=== PATIENT | female | born 2000 | race Two or more races ===

== ENCOUNTER 2018-12-28 21:13 | Emergency (ER) | payer BC, OTHER ==
[~2018-12-28] VITALS: Ht 172.7 cm; Wt 59.0 kg
[2018-12-28 21:29] LABS: BASOPHILS % (AUTO) 0.7 % (0.0-2.0); EOSINOPHILS % (AUTO) 1.1 % (0.0-6.0); HEMATOCRIT 42 % (33-45); HEMOGLOBIN 13.9 g/dL (11.5-14.8); LYMPHOCYTES # (AUTO) 1.9 /CMM (0.8-4.8); LYMPHOCYTES % (AUTO) 32.7 % (20.0-44.0); MEAN CORPUSCULAR HGB CONC 34 g/dl (31.0-36.0); MEAN CORPUSCULAR VOLUME 92 fL (82-100); MONOCYTES # (AUTO) 0.4 /CMM (0.1-1.30); MONOCYTES % (AUTO) 7.6 % (2.0-12.0); NEUTROPHILS # (AUTO) 3.3 /CMM (1.8-8.9); NEUTROPHILS % (AUTO) 57.9 % (43.0-81.0); PLATELET COUNT (AUTO) 231 /CMM (150-450); RED BLOOD CELL COUNT(AUTO) 4.53 MIL/uL (4.0-5.2); WHITE BLOOD COUNT (AUTO) 5.7 K/uL (4.3-11.0)
[2018-12-28] MEDS ORDERED: MORPHINE SULFATE INJ 4 MG/ML DISP.SYRIN ONE (21:29)
[2018-12-28] MEDS ORDERED: ONDANSETRON HCL/PF 4 MG/2 ML VIAL ONE (21:29)
[2018-12-28] MEDS ORDERED: IV NS 0.9% 1,000 ML BAG IV ONE (21:30)
[2018-12-28] MEDS ORDERED: ONDANSETRON HCL/PF - ER 4 MG/2 ML VIAL IV ONE (21:30)
[2018-12-28] MEDS ORDERED: MORPHINE SULFATE INJ 2 MG/ML DISP.SYRIN IV ONE (21:30)
--- NOTE | 2018-12-28 21:36 | NUR ---
PT TYLOR. C/O "HAVING ABD PAIN FOR 2X HRS." -N/V/D -SOB -ACUTE DISTRESS AT THIS TIME. PT AOX4. AMBULATORY W.ASSISTANCE.
--- NOTE | 2018-12-28 21:37 | NUR ---
AT BEDSIDE FOR EVAL.
--- NOTE | 2018-12-28 21:40 | NUR ---
Patient is resting comfortably in bed with eyes closed. Easily aroused. VSS. pt refusing pain medication at this time. pt comfortable and not in distress.
[2018-12-28 21:41] LABS: CALCIUM, SERUM 9.1 mg/dL (8.5-10.1); POTASSIUM 3.4 mmol/L (3.5-5.1)
[2018-12-28 21:47] LABS: ALBUMIN 4.2 g/dL (3.4-5.0); BILIRUBIN,DIRECT 0.1 mg/dL (0.0-0.2); BILIRUBIN,TOTAL 0.3 mg/dL (0.2-1.0); TOTAL PROTEIN, SERUM 7.7 g/dL (6.4-8.2)
--- NOTE | 2018-12-28 21:57 | NUR ---
US AT BEDSIDE.
[2018-12-28 22:53] LABS: APPEARANCE,URINE CLEAR (CLEAR); BILIRUBIN,URINE NEGATIVE (NEGATIVE); BLOOD, URINE NEGATIVE Ery/uL (NEGATIVE); COLOR,URINE YELLOW (YELLOW); KETONES,URINE TRACE (NEGATIVE); LEUKOCYTE ESTERASE ,URINE NEGATIVE (NEGATIVE); NITRITE, URINE NEGATIVE (NEGATIVE); PROTEIN,URINE NEGATIVE (NEGATIVE); UGLUCOSE NEGATIVE (NEGATIVE); UROBILINOGEN,URINE 0.2 EU/dL (0.2)
[2018-12-28 22:57] LABS: RBC,URINE 0-2 /HPF (0-2)
[2018-12-28 22:58] LABS: BACTERIA,URINE Few /HPF (None Seen); SQUAMOUS EPITHELIAL CELL,UR Moderate /HPF (None Seen)
[2018-12-28] MEDS ORDERED: POLYETHYLENE GLYCOL 3350 17 GM POWD.PACK PO ONE (23:00)
[2018-12-28] MEDS ORDERED: SIMETHICONE 80 MG TAB.CHEW PO ONE (23:00)
--- NOTE | 2018-12-28 23:12 | NUR ---
RADIOLOGY AT BEDSIDE FOR XRAY
[2018-12-28] MEDS ORDERED: SIMETHICONE 80 MG TAB.CHEW ONE (23:17)
[2018-12-28 23:32] VITALS: BP 133/73
== END 2018-12-28 23:34 | disposition home or self-care (01) ==
LOC: ER 21:17
DX: K59.00 Constipation, unspecified (principal)
CPT/HCPCS: 36415; 74021; 76700; 76856; 80048; 80076; 81001; 83690; 84484; 84703; 85025; 85730; 93005; 99284; A4606; J7030; 81000-TC; J2270; J2405